=== PATIENT | female | born 1990 | race Caucasian/White ===

== ENCOUNTER 2016-08-22 13:41 | Emergency (ER) | payer MEDICAID ==
[2016-08-22 18:21] VITALS: BP 130/87
== END 2016-08-22 19:17 | disposition home or self-care (01) ==
LOC: ER 13:49
DX: S81.811A Laceration without foreign body, right lower leg, initial encounter (principal); M79.5 Residual foreign body in soft tissue; F17.210 Nicotine dependence, cigarettes, uncomplicated; F12.10 Cannabis abuse, uncomplicated; W22.8XXA Striking against or struck by other objects, initial encounter; Y93.89 Activity, other specified; Y99.8 Other external cause status; Y92.89 Other specified places as the place of occurrence of the external cause
CPT/HCPCS: 12045; 73590

== ENCOUNTER 2017-05-06 07:05 | Emergency (ER) | payer MEDICAID ==
[~2017-05-06] VITALS: Ht 167.6 cm; Wt 65.8 kg
[2017-05-06 07:33] VITALS: BP 147/101
[2017-05-06] MEDS ORDERED: cefTRIAXone SOD 1,000 MG VL IM ONE (09:00)
== END 2017-05-06 09:27 | disposition home or self-care (01) ==
LOC: ER 07:05
DX: S00.06XA Insect bite (nonvenomous) of scalp, initial encounter (principal); L08.9 Local infection of the skin and subcutaneous tissue, unspecified; A64 Unspecified sexually transmitted disease; F17.210 Nicotine dependence, cigarettes, uncomplicated; W57.XXXA Bitten or stung by nonvenomous insect and other nonvenomous arthropods, initial encounter; Y93.89 Activity, other specified; Y99.8 Other external cause status; Y92.89 Other specified places as the place of occurrence of the external cause
CPT/HCPCS: 96372; 99283; J0696

== ENCOUNTER 2019-06-25 02:14 | Observation (INO) | payer MEDICAID ==
[~2019-06-25] VITALS: Ht 167.6 cm; Wt 77.1 kg
[2019-06-25 02:15] VITALS: BP 134/90
[2019-06-25] MEDS ORDERED: LACTATED RINGER'S 1,000 ML IV SCH (03:03)
[2019-06-25] MEDS ORDERED: LACTATED RINGER'S 1,000 ML IV ONE (03:03)
[2019-06-25 03:15] LABS: Alcohol, Urine < 3.0 mg/dL (0-5); Amphetamine Screen, Urine NEGATIVE (NEGATIVE); Barbiturate Scree,Urine NEGATIVE (NEGATIVE); Benzodiazephine Screen, Urine NEGATIVE (NEGATIVE); Cannabinoid Screen, Urine NEGATIVE (NEGATIVE); Cocaine Screen, Urine NEGATIVE (NEGATIVE); Opiate Scree,Urine NEGATIVE (NEGATIVE); Phencyclidine Screen, Urine NEGATIVE (NEGATIVE)
[2019-06-25] MEDS ORDERED: AMPICILLIN SOD 2GM INJ 2 GM in SODIUM CHL 0.9% 100 ML IV ONE (03:15)
[2019-06-25] MEDS ORDERED: BETAMETHASONE ACET (6MG/ML) 5ML VIAL ONE (03:17)
[2019-06-25] MEDS ORDERED: AMPICILLIN SOD 1 GM VL ONE (03:17)
[2019-06-25] MEDS ORDERED: TERBUTALINE SULFATE 1 MG/ML 1ML VIAL SC ONE (03:17)
[2019-06-25] MEDS: TERBUTALINE SULFATE 1 MG/ML 1ML VIAL SC SCH ×2 (03:20→03:40)
[2019-06-25 03:25] LABS: Basophils # (auto) 0.1 uL; Basophils % (auto) 0.8 % (0.0-2.0); Eosinophils # (auto) 0.1 uL; Eosinophils % (auto) 1.1 % (0.0-7.0); Hematocrit 37.8 % (36.0-46.0); Hemoglobin 12.7 g/dL (12.2-16.2); Lymphocytes # (auto) 1.9 uL; Lymphocytes % (auto) 15.8 % (10.0-50.0); Mean Corpuscular Hemoglobin 28.3 pg (28.0-32.0); Mean Corpuscular Hgb Conc. 33.6 g/dL (32.0-36.0); Mean Corpuscular Volume 84.2 fL (80.0-100.0); Monocytes # (auto) 0.7 uL; Monocytes % (auto) 5.8 % (0.0-12.0); Neutrophils % (auto) 76.5 % (37.0-80.0); Nucleated Red Blood Cells % 0.1 %; Platelet Count (auto) 252 10^3/uL (140-450); Red Blood Cells 4.49 10^6/uL (4.0-5.20); Red Cell Distribution Width 14.6 % (11.8-14.3); White Blood Cell 11.7 10^3/uL (4.4-10.8)
[2019-06-25 03:39] LABS: INR 0.92 (0.9-1.15); Partial Thromboplastin Time 29.4 sec (23.64-32.05)
[2019-06-25 03:44] LABS: Albumin 2.2 g/dL (3.4-5.0); BUN/Creatinine Ratio 12.9; Calcium 8.6 mg/dL (8.5-10.1); Potassium 4.1 mmol/L (3.5-5.1)
[2019-06-25 03:47] LABS: Bilirubin, Total 0.4 mg/dL (0.2-1.0); Total Protein 6.9 g/dL (6.4-8.2)
[2019-06-25 04:26] LABS: Urine Amorphous Crystal MOD /hpf (None Seen); Urine Bacteria MOD /hpf (None Seen); Urine Blood Negative /uL (Negative); Urine Mucus FEW (None Seen); Urine Specific Gravity 1.022 (1.001-1.035); Urine WBC 10 /hpf (0 - 5)
[2019-06-25] MEDS ORDERED: BETAMETHASONE ACET (6MG/ML) 5ML VIAL IM SCH (10:00)
[2019-06-27 05:06] LABS: RPR Non Reactive (Non Reactive)
[2019-06-27 06:06] LABS: Rubella Antibodies, IgG <0.90 index (Immune >0.99)
== END 2019-06-25 04:28 | disposition home or self-care (01) | DRG 566 ==
LOC: EDBD 02:14 → EDUNIT# 02:14 → ER 02:17 → LDRP 02:31 → ER 02:47
PROVIDERS: ADMIT Obstetrics & Gynecology; ATTEND Obstetrics & Gynecology
DX: O21.2 Late vomiting of pregnancy (principal); O20.0 Threatened abortion; O26.893 Other specified pregnancy related conditions, third trimester; R11.0 Nausea; R19.7 Diarrhea, unspecified; O99.333 Smoking (tobacco) complicating pregnancy, third trimester; F17.210 Nicotine dependence, cigarettes, uncomplicated; Z3A.32 32 weeks gestation of pregnancy
CPT/HCPCS: 36415; 59025; 76805; 80053; 80307; 81001; 84112; 84550; 85025; 85610; 85730; 86592; 86703; 86762; 86850; 86900; 86901; 87340; 94760; 96361; 96372; 99284; G0378; J0290; J0702; J3105; J7050; 96366